=== PATIENT | female | born 1980 | race Caucasian/White ===

== ENCOUNTER 2016-09-16 12:17 | Emergency (ER) | payer MEDICAID ==
[~2016-09-16] VITALS: Ht 154.9 cm; Wt 72.0 kg
[~2016-09-16 12:17] MED LIST: IBUP-238 PO; PERC5TAB12 PO
[2016-09-16 12:20] VITALS: BP 134/87; PULSE 100; RESP 16; TEMP 99.6; O2SAT 100
[2016-09-16] MEDS ORDERED: TETANUS/DIPHTHERIA TOXOID ADULT 0.5 ML VIAL IM ONE (12:45)
[2016-09-16] MEDS ORDERED: BACT800T5 PO (12:53)
[2016-09-16] MEDS ORDERED: CEPH-460 PO (12:53)
[2016-09-16] MEDS ORDERED: TRAM50TA PO (12:54)
--- NOTE | 2016-09-16 12:54 | PD ---
HPI Chief Complaint: Musculoskeletal Complaint Time Seen by Provider: 12:30 Travel History International Travel<30 days: No Contact w/Intl Traveler<30days: No Traveled to known affect area: No History of Present Illness HPI Patient's 36-year-old female presenting to emergency for evaluation of 3 days of right second finger pain and swelling. Patient states the first day it was sore, the second day she noticed a white spot on her fingertip, by the third day he had gotten bigger so she took a needle and punctured it. Today she presents with increasing pain and redness, and swelling to the right second finger pad. Patient states pain is a 10 out of 10 and she touches it and describes it as throbbing. Patient is uncertain when her last tetanus vaccine was. She denies any fever, chills, numbness, tingling or any further drainage. PFSH Past Medical History Medical History: Denies Significant Hx Diminished Hearing: No Immunizations Current: Yes ?: Not LMP: 09/10/16 : 3 Para: 3 Past Surgical History Appendectomy: Yes (AT 23 YEARS OF AGE) Section: Yes (X 3) Social History Alcohol Use: Yes (social) Tobacco Use: Yes (1 PPD, quit during ) Substance Use: No Allergies-Medications (Allergen,Severity, Reaction): Coded Allergies: No Known Allergies (Verified , 09/16/16) Reported Meds & Prescriptions Reported Meds & Active Scripts Active Motrin (Ibuprofen) 800 Mg Tab 800 Mg PO TID Reported Percocet 5-325 mg (Oxycodone/Acetaminophen) Oxycodone 5/325 Acetaminophen Tab 1- 2 Tab PO Q4H PRN Review of Systems Except as stated in HPI: all other systems reviewed are Neg Musculoskeletal: Positive: Edema, Pain Skin: Positive Change in Pigmentation, Positive Lesions Physical Exam Narrative GENERAL: Well-nourished, well-developed patient. SKIN: Focused skin assessment warm/dry. Right second finger pad from the DIP joint distally edematous, erythematous, nonfluctuant. There is area of ecchymosis approximately 2 mm in length where patient punctured her finger with a pin yesterday. Scant amount of serous drainage was obtained for wound culture from that spot. Brisk, less than 3 second capillary refill, positive radial pulse. HEAD: Normocephalic. EYES: No scleral icterus. No injection or drainage. NECK: Supple, trachea midline. No JVD or lymphadenopathy. CARDIOVASCULAR: Regular rate and rhythm without murmurs, gallops, or rubs. RESPIRATORY: Breath sounds equal bilaterally. No accessory muscle use. GASTROINTESTINAL: Abdomen soft, non-tender, nondistended. MUSCULOSKELETAL: No cyanosis, or edema. BACK: Nontender without obvious deformity. No CVA tenderness. Data Data Last Documented VS Vital Signs Date Time Temp Pulse Resp B/P Pulse Ox O2 Delivery O2 Flow Rate FiO2 09/16/16 12:20 99.6 100 16 134/87 100 Room Air Orders Wound Culture And Gram Stain (09/16/16 12:37) Tetanus/Diphtheria Tox Adult (Tetanus/Di (09/16/16 12:45) MDM Medical Decision Making Medical Screen Exam Complete: Yes Emergency Medical Condition: Yes Interpretation(s) Vital Signs Date Time Temp Pulse Resp B/P Pulse Ox O2 Delivery O2 Flow Rate FiO2 09/16/16 12:20 99.6 100 16 134/87 100 Room Air Differential Diagnosis Cellulitis versus abscess versus paronychia versus other Narrative Course Patient's 36-year-old female presenting to the emergency department 3 days of right second finger pain and swelling. Patient denies any initial puncture wound or retained foreign object, she was gardening prior to her finger pain starting. Wound culture obtained and pending. Tetanus vaccine is updated. Patient's vital signs are stable, she will be started on empiric antibiotics pending wound culture results. She is encouraged follow-up with her primary doctor return to emergency department for any new or worsening symptoms. She verbalized understanding of instructions. Patient stable for discharge. Diagnosis Primary Impression: Cellulitis of finger Qualified Code: L03.011 - Cellulitis of finger of right hand Referrals: Primary Care Physician Patient Instructions: Cellulitis (ED), General Instructions Additional Instructions: Follow-up with your primary doctor Return to emergency department immediately for any new or worsening symptoms Complete the full course of antibiotics as prescribed Apply warm compresses to affected area Med/Other Pt SpecificInfo: Prescription(s) given Scripts Tramadol 50 Mg Tab50 Mg PO Q6H PRN (PAIN) #6 TAB Ref 0 Prov:Jamie Jackson MD 09/16/16 Cephalexin (Keflex)500 Mg Eel112 Mg PO Q12H 10 Days Ref 0 Prov:Linda Corbin 09/16/16 Sulfamethoxazole-Trimethoprim (Bactrim DS)800-160 Mg Tab1 Tab PO BID #20 TAB Ref 0 Prov:Linda Corbin 09/16/16 Disposition: 01 DISCHARGE HOME Condition: Stable Linda Corbin September 16, 2016 12:54
== END 2016-09-16 13:10 | disposition home or self-care (01) ==
LOC: NEPD 12:17
DX: L03.011 Cellulitis of right finger (principal); B95.0 Streptococcus, group A, as the cause of diseases classified elsewhere; Z23 Encounter for immunization
CPT/HCPCS: 87070; 87205; 90471; 90714